=== PATIENT | female | born 1990 | race Caucasian/White ===

== ENCOUNTER → 2017-12-16 | Outpatient (REF) | payer OTHER ==
[2017-12-16 18:09] LABS: CHLAMYDIA DNA AMPLIFICATION NEGATIVE (NEGATIVE); GC DNA AMPLIFICATION NEGATIVE (NEGATIVE)
== END ==
LOC: M SFHCLERA 10:56
DX: R10.9 Unspecified abdominal pain (principal)

== ENCOUNTER → 2018-01-15 | Outpatient (REF) | payer OTHER | LOC: M LAB REF 13:07 | DX: R11.2 Nausea with vomiting, unspecified (principal) ==